=== PATIENT | male | born 1965 | race Caucasian/White ===

== ENCOUNTER 2016-10-07 17:54 | Emergency (ER) | payer OTHER ==
[~2016-10-07] VITALS: Ht 177.8 cm; Wt 97.0 kg
[~2016-10-07 17:54] MED LIST: NOHOMEMEDS
[2016-10-07 18:25] LABS: HEMATOCRIT 44.8 % (38.0-50.0); MCH 28.2 PG (29.0-34.0); MCHC 32.6 G/DL (30.0-36.0); MCV 86.5 FL (86-99); MEAN PLAT.VOLUME 10.6 uM^3 (9.0-12.4); PLATELET COUNT 280 K/uL (156-360); RBC DIS.WIDTH-CV 12.9 % (11.8-14.6); RBC DIS.WIDTH-SD 40.6 % (39-53); RED BLOOD COUNT 5.18 M/uL (4.00-5.50); WHITE BLOOD COUNT 8.7 K/uL (4.1-10.2)
[2016-10-07 18:34] LABS: CHLORIDE 104 mEq/L (99-109); POTASSIUM 3.6 mEq/L (3.7-5.4); SODIUM 138 mEq/L (136-147)
[2016-10-07 18:36] LABS: GLUCOSE 116 mg/dL (70-99)
[2016-10-07 18:38] LABS: ANION GAP 13 MEQ/L (2-14)
[2016-10-07 18:40] LABS: GFR ESTIMATE (CALCULATED) > 59 mL/min/
[2016-10-07 18:41] LABS: UREA NITROGEN (BUN) 16 mg/dL (9-23)
[2016-10-07 18:47] LABS: TROP-I INTERPRETATION NEGATIVE; TROPONIN-I < 0.01 ng/mL (0.0-0.30)
[2016-10-07 21:20] LABS: TROP-I INTERPRETATION NEGATIVE; TROPONIN-I < 0.01 ng/mL (0.0-0.30)
[2016-10-07 21:33] LABS: D-DIMER ELISA 0.32 mg/L FEU (< 0.57)
[2016-10-07] MEDS ORDERED: PEPCID20 MG PO (22:27)
[2016-10-07 22:56] VITALS: BP 129/83
== END 2016-10-07 22:59 | disposition home or self-care (01) ==
LOC: EME 17:54
PROVIDERS: Emergency Medicine
DX: R07.89 Other chest pain (principal); R73.9 Hyperglycemia, unspecified; E87.6 Hypokalemia
CPT/HCPCS: 71020; 80048; 84484; 85027; 85379; 93005; 99281; 99285

== ENCOUNTER 2017-07-19 19:49 | Emergency (ER) | payer OTHER ==
[~2017-07-19] VITALS: Ht 179.1 cm; Wt 95.4 kg
[~2017-07-19 19:49] MED LIST changes: +PEPCID20 MG PO
[2017-07-19 20:46] LABS: HEMOGLOBIN 15.1 G/DL (12.5-16.6); MCHC 33.6 G/DL (30.0-36.0); MCV 86.4 FL (86-99); PLATELET COUNT 327 K/uL (156-360); RBC DIS.WIDTH-CV 13.2 % (11.8-14.6); RBC DIS.WIDTH-SD 40.9 % (39-53); RED BLOOD COUNT 5.21 M/uL (4.00-5.50); WHITE BLOOD COUNT 8.4 K/uL (4.1-10.2)
[2017-07-19 20:54] LABS: CHLORIDE 103 mEq/L (99-109); POTASSIUM 3.9 mEq/L (3.7-5.4); SODIUM 139 mEq/L (136-147)
[2017-07-19 20:55] LABS: GLUCOSE 97 mg/dL (70-99)
[2017-07-19 20:59] LABS: CREATININE 1.1 mg/dL (0.6-1.3); GFR ESTIMATE (CALCULATED) > 59 mL/min/ (58.99-99999)
[2017-07-19 21:00] LABS: UREA NITROGEN (BUN) 16 mg/dL (9-23)
[2017-07-19 21:06] LABS: TROP-I INTERPRETATION NEGATIVE; TROPONIN-I < 0.01 ng/mL (0.0-0.30)
[2017-07-19 23:28] LABS: TROP-I INTERPRETATION NEGATIVE; TROPONIN-I < 0.01 ng/mL (0.0-0.30)
[2017-07-19 23:51] VITALS: BP 133/74
== END 2017-07-19 23:53 | disposition home or self-care (01) ==
LOC: EME 19:49 → RME 19:49
PROVIDERS: Emergency Medicine
DX: R07.89 Other chest pain (principal); Z88.0 Allergy status to penicillin
CPT/HCPCS: 71046; 80048; 84484; 85027; 93005; 99281; 99284